=== PATIENT | female | born 1980 | race Caucasian/White ===

== ENCOUNTER 2021-11-26 16:22 | Emergency (ER) | payer BC, OTHER ==
[~2021-11-26] VITALS: Ht 167.6 cm; Wt 90.7 kg
[2021-11-26 16:22] VITALS: BP_SYST 128
[2021-11-26 18:26] LABS: BASOPHILS # (AUTO) 0.1 K/uL (0.0-0.2); BASOPHILS % (AUTO) 0.4 % (0.0-2.0); EOSINOPHILS # (AUTO) 0.1 K/uL (0.0-0.4); EOSINOPHILS % (AUTO) 0.8 % (0.0-4.0); HEMATOCRIT 40.9 % (36-48); HEMOGLOBIN 13.6 g/dL (12.0-16.0); LYMPHOCYTES % (AUTO) 37.3 % (20.5-51.5); MEAN CORPUSCULAR HEMOGLOBIN 28 pg (27-31); MEAN CORPUSCULAR HGB CONC 33 % (32-36); MEAN CORPUSCULAR VOLUME 83 fL (79.0-98.0); MONOCYTES # (AUTO) 0.6 K/uL (0.0-1.0); MONOCYTES % (AUTO) 4.5 % (1.7-9.3); NEUTROPHILS # (AUTO) 7.6 K/uL (1.8-7.7); PLATELET COUNT (AUTO) 464 K/uL (130-430); RED BLOOD CELL COUNT(AUTO) 4.93 MIL/uL (4.2-6.2); RED CELL DISTRIBUTION WIDTH 13.7 % (9.0-15.0); WHITE BLOOD COUNT (AUTO) 13.3 K/uL (4.8-10.8)
[2021-11-26 18:48] LABS: CALCIUM 9.4 mg/dL (8.4-11.0); CREATININE 0.84 mg/dL (0.55-1.30); POTASSIUM 4.5 mmol/L (3.5-5.1)
[2021-11-26 18:53] LABS: INR 1.7 (0.8-1.2); PROTHROMBIN TIME 17.6 SECS (9.5-12.5)
[2021-11-26] MEDS ORDERED: LOVI120 SQ (18:53)
[2021-11-26 18:54] LABS: ALBUMIN 3.5 g/dL (3.4-4.8); TOTAL BILIRUBIN 0.2 mg/dL (0.0-1.0)
[2021-11-26] MEDS ORDERED: ENOXAPARIN SODIUM 80 MG/0.8 ML SYRINGE SUBCUT ONE (19:00)
[2021-11-26 19:45] VITALS: BP_SYST 128
== END 2021-11-26 19:45 | disposition home or self-care (01) ==
LOC: SED 16:22
DX: I82.441 Acute embolism and thrombosis of right tibial vein (principal); M79.661 Pain in right lower leg; Z79.899 Other long term (current) drug therapy
CPT/HCPCS: 99284; 93971; 80053; 85025; 85610; 85730; 36415; J1650

== ENCOUNTER 2021-11-29 01:18 | Emergency (ER) | payer BC ==
[~2021-11-29] VITALS: Ht 167.6 cm; Wt 90.7 kg
[~2021-11-29 01:18] MED LIST: LOVI120 SQ
[2021-11-29 01:30] VITALS: BP_SYST 117
--- NOTE | 2021-11-29 04:21 | NUR ---
ZOEY, RN BIB AMB WITH MANAGER PART DX; RLE DVT X2 DAYS AGO. C.O SOB, CHEST PAIN/TIGHT CHEST/ BREAST AREA AND BILAT RIB PAIN, POSTY BILAT BACK/ RIB AREA PAIN SINCE 11PM [id number]. RX; LOVENOX TABS AT HOME X2 DAYS. JUANI BOLAND 12/02. AT BEDSIDE
--- NOTE | 2021-11-29 06:20 | NUR ---
ER MD AT BEDSIDE EXAM/ EVAL
[2021-11-29] MEDS ORDERED: iohexoL 350 mgI/mL, 100 ML INFUS..BTL IV ONE (07:08)
--- NOTE | 2021-11-29 07:09 | NUR ---
PT CONSENTED FOR CT OF CHEST WITH CONTRAST BY RN. TO CT SCAN VIA [facility] WITH TECH
--- NOTE | 2021-11-29 07:17 | NUR ---
received sbarat this time, pt in CT
[2021-11-29 07:53] LABS: ANION GAP 10 (5-15); CALCIUM 8.6 mg/dL (8.4-11.0); CHLORIDE 105 mmol/L (98-107); CREATININE 0.77 mg/dL (0.55-1.30); GLUCOSE 119 mg/dL (70-99); POTASSIUM 4.2 mmol/L (3.5-5.1); SODIUM SERUM 139 mmol/L (136-145); UREA NITROGEN, BLOOD 13 mg/dL (8-21)
[2021-11-29 08:01] LABS: ALANINE AMINOTRANSFERASE 225 U/L (12-78); ALBUMIN 3.1 g/dL (3.4-4.8); ASPARTATE AMINOTRANSFERASE 215 U/L (10-37); TOTAL BILIRUBIN 0.3 mg/dL (0.0-1.0)
[2021-11-29] MEDS ORDERED: MORPHINE 4 MG INJ. 4 MG/ML VIAL IVP ONE (08:15)
[2021-11-29 08:17] LABS: GFR AFRICAN AMERICAN 105 mL/min (>90)
[2021-11-29 08:25] LABS: BASOPHILS % (AUTO) 0.2 % (0.0-2.0); EOSINOPHILS % (AUTO) 0.1 % (0.0-4.0); HEMATOCRIT 37.3 % (36-48); HEMOGLOBIN 12.6 g/dL (12.0-16.0); LYMPHOCYTES # (AUTO) 2.5 K/uL (1.0-5.5); LYMPHOCYTES % (AUTO) 14.9 % (20.5-51.5); MEAN CORPUSCULAR HEMOGLOBIN 28 pg (27-31); MEAN CORPUSCULAR HGB CONC 34 % (32-36); MEAN CORPUSCULAR VOLUME 82 fL (79.0-98.0); MONOCYTES # (AUTO) 0.5 K/uL (0.0-1.0); MONOCYTES % (AUTO) 2.8 % (1.7-9.3); NEUTROPHILS # (AUTO) 13.6 K/uL (1.8-7.7); PLATELET COUNT (AUTO) 380 K/uL (130-430); RED BLOOD CELL COUNT(AUTO) 4.53 MIL/uL (4.2-6.2); RED CELL DISTRIBUTION WIDTH 13.5 % (9.0-15.0); WHITE BLOOD COUNT (AUTO) 16.6 K/uL (4.8-10.8)
[2021-11-29 08:43] VITALS: BP_SYST 124
--- NOTE | 2021-11-29 08:45 | NUR ---
Patient given written and verbal discharge instructions and verbalizes understanding. ER chantale MITCHELL discussed with patient the results and treatment provided. Patient in stable condition. ID arm band removed. IV catheter removed intact and dressing applied, no active bleeding. . Patient educated on pain management and to follow up with PMD. Pain Scale 1. Opportunity for questions provided and answered. Medication side effect fact sheet provided.
== END 2021-11-29 08:43 | disposition home or self-care (01) ==
LOC: SED 01:18
DX: R07.9 Chest pain, unspecified (principal); K21.9 Gastro-esophageal reflux disease without esophagitis; R11.0 Nausea; Z79.899 Other long term (current) drug therapy
CPT/HCPCS: 99285; 96374; 71275; 71045; 80053; 82550; 85025; 85379; 84484; 36415; 93005; 76376; Q9967; J2270

== ENCOUNTER 2023-05-31 16:47 | Inpatient (IN) | payer BC ==
[~2023-05-31] VITALS: Ht 167.6 cm; Wt 73.0 kg
[2023-05-31 17:17] VITALS: BP_SYST 93; PULSE 68; RESP 19; TEMP 97.6; O2SAT 99
[2023-05-31 18:16] LABS: BASOPHILS # (AUTO) 0.1 K/uL (0.0-0.2); BASOPHILS % (AUTO) 0.7 % (0.0-2.0); EOSINOPHILS # (AUTO) 0.2 K/uL (0.0-0.4); EOSINOPHILS % (AUTO) 2.3 % (0.0-4.0); HEMATOCRIT 36.8 % (36-48); HEMOGLOBIN 12.4 g/dL (12.0-16.0); LYMPHOCYTES # (AUTO) 2.4 K/uL (1.0-5.5); LYMPHOCYTES % (AUTO) 29.5 % (20.5-51.5); MEAN CORPUSCULAR HEMOGLOBIN 29 pg (27-31); MEAN CORPUSCULAR HGB CONC 34 % (32-36); MEAN CORPUSCULAR VOLUME 85 fL (79.0-98.0); MONOCYTES # (AUTO) 0.5 K/uL (0.0-1.0); NEUTROPHILS # (AUTO) 5.1 K/uL (1.8-7.7); NEUTROPHILS % (AUTO) 61.5 % (40.0-70.0); PLATELET COUNT (AUTO) 361 K/uL (130-430); RED BLOOD CELL COUNT(AUTO) 4.31 MIL/uL (4.2-6.2); WHITE BLOOD COUNT (AUTO) 8.2 K/uL (4.8-10.8)
[2023-05-31 18:23] LABS: ANION GAP 11 (5-15); CALCIUM 8.8 mg/dL (8.4-11.0); CARBON DIOXIDE 26 mmol/L (23-29); CHLORIDE 105 mmol/L (98-107); CREATININE 0.64 mg/dL (0.55-1.30); GFR AFRICAN AMERICAN 130 mL/min (>90); GLUCOSE 101 mg/dL (74-106); INR 1.3 (0.8-1.2); POTASSIUM 3.9 mmol/L (3.5-5.1); PROTHROMBIN TIME 13.4 SECS (9.5-12.5); SODIUM SERUM 142 mmol/L (136-145); UREA NITROGEN, BLOOD 8 mg/dL (8-21)
[2023-05-31 18:25] LABS: GFR NON AFRICAN-AMERICAN 107 mL/min (>90)
[2023-05-31 18:28] LABS: ALANINE AMINOTRANSFERASE 43 U/L (12-78); ALBUMIN 3.7 g/dL (3.4-4.8); ASPARTATE AMINOTRANSFERASE 20 U/L (10-37); LIPASE 43 U/L (16-77); TOTAL BILIRUBIN 0.1 mg/dL (0.0-1.0); TOTAL PROTEIN, SERUM 6.9 g/dL (6.4-8.3)
[2023-05-31 18:36] LABS: BILIRUBIN,DIRECT < 0.1 mg/dL (0.0-0.3)
[2023-05-31 18:52] LABS: BILIRUBIN,URINE NEGATIVE (NEGATIVE); BLOOD, URINE NEGATIVE (NEGATIVE); CLARITY/URINE CLEAR (CLEAR); COLOR,URINE YELLOW (YELLOW); GLUCOSE,URINE NEGATIVE (NEGATIVE); KETONES,URINE NEGATIVE (NEGATIVE); LEUKOCYTE ESTERASE ,URINE NEGATIVE (NEGATIVE); NITRITE, URINE NEGATIVE (NEGATIVE); PROTEIN URINE NEGATIVE (NEGATIVE); UROBILINOGEN,URINE 0.2 (0.2-1.0)
[2023-05-31] MEDS ORDERED: PIPERACILLIN/TAZOBACTAM 3.375 GM/VIAL (ZOSYN) IV ONE (19:40)
[2023-05-31] MEDS: PIPERACILLIN/TAZO 3.375 GM in NS 50 ML IV ONE (19:52)
[2023-05-31] MEDS: MORPHINE 4 MG INJ. 4 MG/ML VIAL IVP ONE ×3 (19:53→22:05)
[2023-05-31] MEDS: ONDANSETRON HCL 4 MG/2 ML VIAL IVP ONE ×2 (19:54→22:06)
[2023-05-31] MEDS: NACL 0.9% 1,000 ML IV ONE ×2 (19:56→22:05)
[2023-05-31] MEDS ORDERED: MORPHINE 2 MG/ML INJ. SYRINGE IVP PRN (22:00)
[2023-05-31] MEDS: D5/0.45 NS 1,000 ML IV SCH (23:30)
[2023-05-31] MEDS ORDERED: LORazepam 2 MG/ML VIAL IVP PRN (23:30)
[2023-06-01 01:00] LABS: INFLUENZA TYPE A Negative (NEGATIVE); INFLUENZA TYPE B NEGATIVE (NEGATIVE)
[2023-06-01] MEDS: MORPHINE 2 MG/ML INJ. SYRINGE IVP PRN (02:21)
[2023-06-01] MEDS ORDERED: WARF1TAB84 PO (06:07)
[2023-06-01] MEDS: ONDANSETRON HCL 4 MG/2 ML VIAL IVP PRN ×2 (06:58→22:59)
[2023-06-01] MEDS ORDERED: PIPERACILLIN/TAZOBACTAM 3.375 GM/VIAL (ZOSYN) IV ONE (07:30)
[2023-06-01] MEDS: PIPERACILLIN/TAZO 3.375/DEX-IS 50 ML IV SCH (07:41)
[2023-06-01 10:15] LABS: BASOPHILS % (AUTO) 0.7 % (0.0-2.0); EOSINOPHILS # (AUTO) 0.2 K/uL (0.0-0.4); EOSINOPHILS % (AUTO) 2.2 % (0.0-4.0); HEMATOCRIT 34.1 % (36-48); HEMOGLOBIN 11.2 g/dL (12.0-16.0); LYMPHOCYTES # (AUTO) 3.8 K/uL (1.0-5.5); LYMPHOCYTES % (AUTO) 55.2 % (20.5-51.5); MEAN CORPUSCULAR HEMOGLOBIN 28 pg (27-31); MEAN CORPUSCULAR HGB CONC 33 % (32-36); MEAN CORPUSCULAR VOLUME 86 fL (79.0-98.0); MONOCYTES # (AUTO) 0.4 K/uL (0.0-1.0); MONOCYTES % (AUTO) 5.2 % (1.7-9.3); NEUTROPHILS # (AUTO) 2.5 K/uL (1.8-7.7); NEUTROPHILS % (AUTO) 36.7 % (40.0-70.0); PLATELET COUNT (AUTO) 308 K/uL (130-430); RED BLOOD CELL COUNT(AUTO) 3.96 MIL/uL (4.2-6.2); WHITE BLOOD COUNT (AUTO) 6.8 K/uL (4.8-10.8)
[2023-06-01 10:26] LABS: ALBUMIN 2.8 g/dL (3.4-4.8); CALCIUM 7.9 mg/dL (8.4-11.0); CREATININE 0.63 mg/dL (0.55-1.30); PHOSPHORUS 3.3 mg/dL (2.7-4.5); TOTAL BILIRUBIN 0.1 mg/dL (0.0-1.0); TOTAL PROTEIN, SERUM 5.4 g/dL (6.4-8.3)
[2023-06-01] MEDS ORDERED: MORPHINE 2 MG/ML INJ. SYRINGE ONE (13:10)
[2023-06-01] MEDS ORDERED: ONDANSETRON HCL 4 MG/2 ML VIAL ONE (13:11)
[2023-06-01 14:21] VITALS: BP_SYST 119; PULSE 58; RESP 15; TEMP 97.2
[2023-06-01] MEDS ORDERED: BREX0.5T PO (14:47)
[2023-06-01] MEDS ORDERED: DULO60CA42 PO (14:47)
[2023-06-01] MEDS ORDERED: OMEP-268 PO (14:47)
[2023-06-01 15:37] VITALS: O2SAT 98
[2023-06-01 17:08] VITALS: BP_SYST 92; PULSE 55; RESP 15; TEMP 97.4; O2SAT 97
[2023-06-01] MEDS ORDERED: PHENYLEPHRINE HCL 10 MG/ML VIAL (NEOSYNEPHRINE) ONE (20:00)
[2023-06-01] MEDS ORDERED: ROCURONIUM BROMIDE 10 MG/ML (ZEMURON) ONE (20:00)
[2023-06-01] MEDS ORDERED: ePHEDrine sulfate 50 MG/ML VIAL ONE (20:00)
[2023-06-01] MEDS ORDERED: SUCCINYLCHOLINE CHLORIDE 20 MG/ML(QUELICIN) ONE (20:00)
[2023-06-01] MEDS ORDERED: GLYCOPYRROLATE 0.2 MG/ML VIAL ONE (20:00)
[2023-06-01] MEDS ORDERED: DEXAMETHASONE SOD PHOSPHATE 4 MG/ML VIAL ONE (20:00)
[2023-06-01] MEDS ORDERED: PROPOFOL 200MG/ 20ML VIAL (DIPRIVAN) IV ONE (20:00)
[2023-06-01] MEDS ORDERED: BUPIVACAINE /PF 0.25% 30 ML VIAL INJ ONE (20:00)
[2023-06-01] MEDS ORDERED: NS IRRIG SOLN 1000 ML IR ONE (20:00)
[2023-06-01] MEDS ORDERED: LR 1,000 ML IV.SOLN IV ONE (20:00)
[2023-06-01] MEDS ORDERED: SEVOFLURANE 15 MIN GAS INH ONE (20:00)
[2023-06-01] MEDS ORDERED: METOCLOPRAMIDE HCL 10 MG/2 ML VIAL IVP PRN (22:30)
[2023-06-01] MEDS ORDERED: NALOXONE HCL 0.4 MG/ML AMP (NARCAN) IVP PRN (22:30)
[2023-06-01] MEDS ORDERED: MORPHINE 4 MG INJ. 4 MG/ML VIAL IVP PRN ×2 (22:30)
[2023-06-01] MEDS: HYDROmorphone 1 MG/ML INJ. CARTRIDGE IVP PRN (22:45)
[2023-06-01] MEDS: ONDANSETRON HCL 4 MG/2 ML VIAL ONE (22:57)
[2023-06-01] MEDS: HYDROmorphone 1 MG/ML INJ. CARTRIDGE ONE (22:58)
[2023-06-01] MEDS: DIPHENHYDRAMINE INJ 50 MG/ML VIAL ONE (23:20)
[2023-06-01] MEDS: DIPHENHYDRAMINE INJ 50 MG/ML VIAL IVP ONE (23:26)
[2023-06-02] VITALS (7 sets, daily range): BP systolic 94–113; PULSE 60–84; RESP 16–18; TEMP 96.8–98.5; O2SAT 95–100
[2023-06-02] MEDS: traMADol HCL HCL 50 MG TABLET (ULTRAM) PO PRN (02:05)
[2023-06-02] MEDS: DULoxetine HCL 30 MG CAPSULE.DR (CYMBALTA) PO SCH (08:31)
[2023-06-02] MEDS: SIMETHICONE 80 MG TAB.CHEW PO SCH (15:03)
[2023-06-02] MEDS: ENOXAPARIN SODIUM 40 MG/0.4 ML SYRINGE SUBCUT SCH (21:24)
[2023-06-02] MEDS: HYDROcodone/ACETAMIN 10-325 MG TAB PO PRN (23:22)
[2023-06-03] VITALS: BP_SYST 112; PULSE 65; RESP 18; TEMP 98.1; O2SAT 97
[2023-06-03 10:15] LABS: INR 1.4 (0.8-1.2); PROTHROMBIN TIME 14.2 SECS (9.5-12.5)
[2023-06-03] MEDS: HYDROmorphone 1 MG/ML INJ. CARTRIDGE IVP PRN (11:43)
[2023-06-03] MEDS: WARFARIN SODIUM 5 MG TABLET PO SCH (18:00)
[2023-06-03 20:00] VITALS: BP_SYST 109; PULSE 76; RESP 18; TEMP 99.1; O2SAT 100
[2023-06-04 00:51] VITALS: BP_SYST 106; PULSE 84; RESP 18; TEMP 98.6; O2SAT 94
[2023-06-04 07:31] LABS: PROTHROMBIN TIME 10.6 SECS (9.5-12.5)
[2023-06-04 08:15] VITALS: BP_SYST 109; PULSE 71; RESP 19; TEMP 98.6; O2SAT 97; O2SAT 98
[2023-06-04] MEDS: DOCUSATE SODIUM 100 MG CAPSULE PO SCH (09:26)
[2023-06-04 12:00] VITALS: BP_SYST 111; PULSE 74; RESP 19; TEMP 98.6; O2SAT 98
[2023-06-04 20:00] VITALS: BP_SYST 119; PULSE 71; RESP 18; TEMP 97.4; O2SAT 96
[2023-06-04 20:15] VITALS: O2SAT 96
[2023-06-05] VITALS (9 sets, daily range): BP systolic 100–128; PULSE 68–74; RESP 18; TEMP 97.7–98; O2SAT 94–100
[2023-06-05 09:38] LABS: BASOPHILS % (AUTO) 0.5 % (0.0-2.0); EOSINOPHILS # (AUTO) 0.4 K/uL (0.0-0.4); EOSINOPHILS % (AUTO) 5.2 % (0.0-4.0); HEMATOCRIT 31.2 % (36-48); HEMOGLOBIN 10.4 g/dL (12.0-16.0); LYMPHOCYTES # (AUTO) 2.7 K/uL (1.0-5.5); MEAN CORPUSCULAR HEMOGLOBIN 29 pg (27-31); MEAN CORPUSCULAR HGB CONC 33 % (32-36); MEAN CORPUSCULAR VOLUME 86 fL (79.0-98.0); MONOCYTES # (AUTO) 0.5 K/uL (0.0-1.0); MONOCYTES % (AUTO) 6.8 % (1.7-9.3); NEUTROPHILS # (AUTO) 3.5 K/uL (1.8-7.7); NEUTROPHILS % (AUTO) 49.5 % (40.0-70.0); PLATELET COUNT (AUTO) 172 K/uL (130-430); RED BLOOD CELL COUNT(AUTO) 3.63 MIL/uL (4.2-6.2); RED CELL DISTRIBUTION WIDTH 14.9 % (9.0-15.0)
[2023-06-05 09:42] LABS: INR 0.9 (0.8-1.2); PROTHROMBIN TIME 9.4 SECS (9.5-12.5)
[2023-06-05 09:43] LABS: CALCIUM 8.5 mg/dL (8.4-11.0); CREATININE 0.62 mg/dL (0.55-1.30); POTASSIUM 4.2 mmol/L (3.5-5.1)
[2023-06-05] MEDS: MAGNESIUM CITRATE 300 ML ORAL SOLUTION PO ONE (14:16)
[2023-06-05] MEDS: WARFARIN SODIUM 3 MG TABLET PO SCH (18:25)
[2023-06-06] VITALS: BP_SYST 123; PULSE 70; RESP 18; TEMP 97.6; O2SAT 99
[2023-06-06 05:53] LABS: BASOPHILS # (AUTO) 0.1 K/uL (0.0-0.2); EOSINOPHILS # (AUTO) 0.5 K/uL (0.0-0.4); EOSINOPHILS % (AUTO) 5.8 % (0.0-4.0); HEMATOCRIT 29.9 % (36-48); LYMPHOCYTES # (AUTO) 3.2 K/uL (1.0-5.5); LYMPHOCYTES % (AUTO) 39.7 % (20.5-51.5); MEAN CORPUSCULAR HEMOGLOBIN 29 pg (27-31); MEAN CORPUSCULAR HGB CONC 34 % (32-36); MEAN CORPUSCULAR VOLUME 85 fL (79.0-98.0); MONOCYTES # (AUTO) 0.6 K/uL (0.0-1.0); MONOCYTES % (AUTO) 7.1 % (1.7-9.3); NEUTROPHILS # (AUTO) 3.8 K/uL (1.8-7.7); NEUTROPHILS % (AUTO) 46.4 % (40.0-70.0); PLATELET COUNT (AUTO) 329 K/uL (130-430); RED CELL DISTRIBUTION WIDTH 14.8 % (9.0-15.0); WHITE BLOOD COUNT (AUTO) 8.1 K/uL (4.8-10.8)
[2023-06-06 06:19] LABS: CALCIUM 8.3 mg/dL (8.4-11.0); CREATININE 0.59 mg/dL (0.55-1.30); POTASSIUM 3.9 mmol/L (3.5-5.1)
[2023-06-06 07:48] VITALS: BP_SYST 105; BP_SYST 171; PULSE 63; PULSE 73; RESP 16; RESP 18; TEMP 97.3; TEMP 97.6; O2SAT 97; O2SAT 98
[2023-06-06 07:57] LABS: INR 1.1 (0.8-1.2); PROTHROMBIN TIME 11.5 SECS (9.5-12.5)
[2023-06-06 08:00] VITALS: O2SAT 99
[2023-06-06 11:13] VITALS: BP_SYST 116; PULSE 69; RESP 17; TEMP 98.4; O2SAT 99
[2023-06-06 12:58] VITALS: BP_SYST 116; PULSE 69; RESP 18; TEMP 98.4; O2SAT 98
[2023-06-06 14:41] VITALS: TEMP 98
[2023-06-06] MEDS ORDERED: ENOXAPARIN SODIUM 100 MG/ML SYRINGE SUBCUT SCH (21:00)
== END 2023-06-06 15:41 | disposition home or self-care (01) | DRG 418 ==
LOC: SED 16:47 → SMU 21:30
PROVIDERS: ADMIT Preventive Medicine Preventive Medicine/Occupational Environmental Medicine; ATTEND Specialist
PROC: 0FT44ZZ Resection of Gallbladder, Percutaneous Endoscopic Approach (ICD-10-PCS; principal; 2023-06-01 20:07)
DX: K80.00 Calculus of gallbladder with acute cholecystitis without obstruction (principal); D68.2 Hereditary deficiency of other clotting factors; D68.51 Activated protein C resistance; Z20.822 Contact with and (suspected) exposure to COVID-19; Z90.710 Acquired absence of both cervix and uterus; Z79.01 Long term (current) use of anticoagulants; Z86.718 Personal history of other venous thrombosis and embolism; Z86.711 Personal history of pulmonary embolism
CPT/HCPCS: 36415; 71275; 76376; 76705; 78226; 80048; 80053; 80076; 81001; 81003; 83605; 83690; 83735; 84100; 85025; 85610; 85730; 86886; 86900; 86901; 87040; 87081; 87086; 88304; 93005; 94760; 96365; 96375; 96376; 99291; A9537; C1727; J0330; J1100; J1170; J1200; J1650; J2270; J2370; J2405; J2543; J2704; J3490; J7120